=== PATIENT | male | born 1995 | race Two or more races ===

== ENCOUNTER 2022-01-25 13:38 | Emergency (ER) | payer OTHER ==
[~2022-01-25] VITALS: Ht 170.2 cm; Wt 93.0 kg
[2022-01-25] MEDS ORDERED: SYNTHROID75 MCG PO (13:56)
== END 2022-01-25 16:12 | disposition home or self-care (01) ==
LOC: ER 13:38
DX: R50.9 Fever, unspecified (principal); E03.9 Hypothyroidism, unspecified; Z20.822 Contact with and (suspected) exposure to COVID-19